=== PATIENT | male | born 1975 | race Caucasian/White ===

== ENCOUNTER → 2016-05-14 | Outpatient (CLI) | payer BC ==
[~2016-05-14] MED LIST: COLACE 100MG C100 MG PO; COUMADIN7.5 MG PO; ELIQUIS5 MG PO; LOVENOX SYR100 MG/ML SQ; PERCOCET 5-3251 EACH PO; PHENERGAN 12.12.5 M1 PO
== END ==
LOC: KOH-I 12:58
DX: I82.401 Acute embolism and thrombosis of unspecified deep veins of right lower extremity (principal)
CPT/HCPCS: 93971

== ENCOUNTER → 2020-05-17 | Outpatient (CLI) | payer BC | LOC: CT 04-26 13:00 | DX: D18.03 Hemangioma of intra-abdominal structures (principal); K76.89 Other specified diseases of liver | CPT/HCPCS: 74170; Q9967 ==